=== PATIENT | male | born 1965 | race African-American/Black ===

== ENCOUNTER → 2017-09-12 | Outpatient (CLI) | payer OTHER | END | disposition home or self-care (01) | LOC: LABWHC1 14:30 | PROVIDERS: ATTEND Family Medicine | DX: Z13.88 Encounter for screening for disorder due to exposure to contaminants (principal) | CPT/HCPCS: 36415; 83655 ==

== ENCOUNTER → 2018-11-30 | Outpatient (CLI) | payer OTHER ==
--- NOTE | 2018-11-30 23:41 | MR ---
EXAMINATION TYPE: MR femur/thigh RT wo con DATE OF EXAM: 11/30/2018 COMPARISON: None HISTORY: Thigh pain/tightness, swelling in rt knee Standard multiplanar, multisequence MRI departmental protocol Multiplanar, multisequence images of the right thigh were acquired. FINDINGS: There is a knee joint effusion. The visualized femur appears intact without evidence of foc al bone destruction. There is 18 x 8 mm exostosis type lesion on the posterior aspect of the distal s haft of the femur. There is no evidence of a soft tissue mass. There is no evidence of deep venous th rombosis in the thigh. There is no evidence of intramuscular mass. Muscle bundles appear intact. Ther e is minimal subcutaneous edema around the knee. IMPRESSION: There is evidence of a benign-appearing exostosis of the posterior distal shaft of the femur. Otherwi se negative MR scan of the thigh. Knee joint effusion is noted.
--- NOTE | 2018-11-30 23:46 | MR ---
EXAMINATION TYPE: MR knee RT wo con DATE OF EXAM: 11/30/2018 COMPARISON: None HISTORY: Thigh pain/tightness, swelling in rt knee TECHNIQUE: Multiplanar, multisequence imaging of the right knee is performed without IV contrast. FINDINGS: There is knee joint effusion. There is subcutaneous edema around the knee. The anterior and posterior cruciate ligaments are intact. The medial and lateral menisci appear intact. Collateral ligaments ar e intact. I see no bony destructive process. There are small degenerative cysts in the posterior aspe ct of the medial tibial condyle. There is a large cartilaginous defect involving articular surface of the medial femoral condyle. This measures 6 x 17 mm. IMPRESSION: Knee joint effusion. No evidence of ligamentous or meniscal tear. Small degenerative cysts in the med ial tibial condyle. Moderate subcutaneous edema around the knee joint. No fracture seen. Large cartilaginous defect of the medial femoral condyle.
== END | disposition home or self-care (01) ==
LOC: RADMRIMAIN 20:30
PROVIDERS: ATTEND Orthopaedic Surgery
DX: M25.461 Effusion, right knee (principal); M85.68 Other cyst of bone, other site

== ENCOUNTER 2021-05-30 11:41 | Emergency (ER) | payer OTHER ==
--- NOTE | 2021-05-30 13:32 | XR ---
EXAMINATION TYPE: XR foot complete LT DATE OF EXAM: 05/30/2021 COMPARISON: NONE HISTORY: Pain TECHNIQUE: Three views are submitted. FINDINGS: The osseous structures are intact. There is no acute fracture or dislocation. Joint spaces are p reserved. Calcaneal spurs noted. IMPRESSION: 1. No acute fracture or dislocation. If symptoms persist, follow-up exam in 7 to 10 days could be ob tained.
--- NOTE | 2021-05-30 13:33 | XR ---
EXAMINATION TYPE: XR Hip Complete LT DATE OF EXAM: 05/30/2021 COMPARISON: NONE HISTORY: Pain TECHNIQUE: 2 views submitted FINDINGS: There is no evidence of erosive change or acute fracture. Hypertrophic change of the acetabulum. IMPRESSION: 1. No evidence of acute fracture or dislocation. Correlate for femoral acetabular impingement.
--- NOTE | 2021-05-30 13:33 | ED ---
General Adult HPI - General Chief complaint: Trauma Stated complaint: [facility] - lt side injury Time Seen by Provider: 05/30/21 12:42 Source: patient Mode of arrival: ambulatory Limitations: no limitations - History of Present Illness Initial comments: Dictation was produced using [employer] dictation software. please excuse any grammatical, word or spelling errors. Chief Complaint: 55-year-old male with no significant past medical history presents with left shoulder pain, left hip pain and left foot pain History of Present Illness: Patient is a 55-year-old male who presents to the emergency department for left shoulder, left hip and left foot pain. Yesterday he was at work when a high low reversed into him. He states that the lateral portion of his foot was ran over by a tire causing his sock to read. He has some bruising on the lateral foot. She states that the hilar was going at low speeds. States that he has left shoulder and left hip pain. He states that he came today because he was not able to follow-up yesterday. The ROS documented in this emergency department record has been reviewed and confirmed by me. Those systems with pertinent positive or negative responses have been documented in the HPI. All other systems are other negative and/or noncontributory. PHYSICAL EXAM: General Impression: Alert and oriented x3, not in acute distress HEENT: Normocephalic atraumatic, extra-ocular movements intact, pupils equal and reactive to light bilaterally, mucous membranes moist. Cardiovascular: Heart regular rate and rhythm Chest: Able to complete full sentences, no retractions, no tachypnea Abdomen: abdomen soft, non-tender, non-distended, no organomegaly Musculoskeletal: Pulses present and equal in all extremities, no peripheral edema, no tenderness over the left acromial tip, limited active range of motion abduction, intact passive range of motion, stable left hip, left hip manipulation is nonantalgic Left foot, mild bruising around the lateral foot Motor: no focal deficits noted Neurological: CN II-XII grossly intact, no focal motor or sensory deficits noted Skin: Intact with no visualized rashes Psych: Normal affect and mood ED course: 55-year-old male presents with left foot crush injury and contusion of his left shoulder and left hip. Vital signs upon arrival are within acceptable limits. X-ray of the shoulder shows no acute fractures. There is a spur off the inferior surface of the left apical. Radiology recommends MRI. Left hip x-ray shows no fracture dislocation but there does appear to be femoral acetabular impingement. Foot x-ray shows no acute fracture. Patient reevaluated at the bedside. He states he feels okay. Does not have pain in his mid foot or with his based fifth metatarsal. Chin states he has known history of a spur on his left clavicle from previous injury. Patient requesting 800 mg Motrin for when necessary pain to take home. - Related Data Previous Rx's Medication Instructions Recorded Ibuprofen [Motrin] 800 mg PO Q8H PRN #24 tab 05/30/21 Allergies Allergy/AdvReac Type Severity Reaction Status Date / Time No Known Allergies Allergy Verified 05/30/21 12:24 Review of Systems ROS Statement: Those systems with pertinent positive or pertinent negative responses have been documented in the HPI. ROS Other: All systems not noted in ROS Statement are negative. Past Medical History Past Medical History: No Reported History History of Any Multi-Drug Resistant Organisms: None Reported Past Surgical History: No Surgical Hx Reported Past Psychological History: No Psychological Hx Reported Smoking Status: Never smoker Past Alcohol Use History: None Reported Past Drug Use History: None Reported General Exam Limitations: no limitations Course Vital Signs 05/30/21 12:25 Temperature 98 F Pulse Rate 88 Respiratory 16 Rate Blood Pressure 139/86 O2 Sat by Pulse 99 Oximetry Disposition Clinical Impression: Contusion, hip, Crush injury of foot, Shoulder contusion Disposition: HOME SELF-CARE Condition: Good Instructions (If sedation given, give patient instructions): Contusion in Adults (ED) Prescriptions: Ibuprofen [Motrin] 800 mg PO Q8H PRN #24 tab PRN Reason: Pain Is patient prescribed a controlled substance at d/c from ED?: No Referrals: Robert Martell MD [Primary Care Provider] - 1-2 days
--- NOTE | 2021-05-30 13:34 | XR ---
EXAMINATION TYPE: XR shoulder complete LT DATE OF EXAM: 05/30/2021 COMPARISON: NONE HISTORY: Pain TECHNIQUE: Three views are submitted. FINDINGS: The osseous structures are intact. There is no acute fracture or dislocation. Mild hypertrophic campuzano ge of the AC joint. Spur extending off the mid left clavicle. No acute fracture or dislocation. AC liliana int distance within normal limits IMPRESSION: 1. No acute fracture. 2. Spur extending off the inferior surface of the mid left clavicle could represent a small exostosis . Recommend MRI of the shoulder.
[2021-05-30] MEDS ORDERED: IBUPROFEN 800 MG TAB PO STA (13:37)
[2021-05-30 14:29] VITALS: BP 132/82; PULSE 80; RESP 18; TEMP 98.4
== END 2021-05-30 14:28 | disposition home or self-care (01) ==
LOC: EC 11:41
DX: S40.012A Contusion of left shoulder, initial encounter (principal); S70.02XA Contusion of left hip, initial encounter; S97.82XA Crushing injury of left foot, initial encounter; V09.9XXA Pedestrian injured in unspecified transport accident, initial encounter; Y99.0 Civilian activity done for income or pay
CPT/HCPCS: 73502; 99283

== ENCOUNTER → 2021-06-07 | Outpatient (CLI) | payer OTHER ==
--- NOTE | 2021-06-08 02:49 | MR ---
EXAMINATION TYPE: MR hip LT wo con DATE OF EXAM: 06/07/2021 COMPARISON: None HISTORY: Left hip pain since 05-28-21 due to being hit by forklift at work Multiplanar multiecho imaging of the pelvis and left hip without contrast. Proximal femurs appear intact. There is fairly normal signal pattern of the femoral heads. Acetabula appear intact. Bladder distends smoothly. There is no free fluid in the pelvis. Sacroiliac joints tiffanie ear normal. Pelvic ring appears intact. There is no evidence of a soft tissue mass. No evidence of an y significant hip joint effusion. No evidence of a pelvic mass. IMPRESSION: Negative MR scan of the left hip. No fracture. No sign of soft tissue injury.
--- NOTE | 2021-06-08 02:57 | MR ---
EXAMINATION TYPE: MR shoulder LT wo con DATE OF EXAM: 06/07/2021 COMPARISON: None HISTORY: Left shoulder pain since 05-28-21 due to being hit by forklift at work Multiplanar multiecho imaging of the left shoulder without contrast. The glenoid marlon appear intact. Subscapularis tendon is intact. Biceps tendon is intact. AC joint is intact. There is no subacromial impingement. The supraspinatus tendon is intact. No retraction. No e vidence of any significant shoulder joint effusion. No evidence of soft tissue mass. No evidence of a fracture. IMPRESSION: Negative MR scan of the left shoulder. No evidence of rotator cuff tear. No fracture.
== END | disposition home or self-care (01) ==
LOC: RADMRIMAIN 15:39
PROVIDERS: ATTEND Emergency Medicine
DX: S40.012A Contusion of left shoulder, initial encounter (principal); S43.402A Unspecified sprain of left shoulder joint, initial encounter; S73.102A Unspecified sprain of left hip, initial encounter; S70.02XA Contusion of left hip, initial encounter; S97.82XA Crushing injury of left foot, initial encounter; R20.9 Unspecified disturbances of skin sensation; X58.XXXA Exposure to other specified factors, initial encounter

== ENCOUNTER → 2021-06-11 | Outpatient (CLI) | payer OTHER ==
--- NOTE | 2021-06-11 11:09 | CT ---
EXAMINATION TYPE: CT foot LT wo con DATE OF EXAM: 06/11/2021 COMPARISON: X-ray dated 05/30/2021 HISTORY: Left 5th metatarsal pain after injury. CT DLP: 342.1 mGycm Automated exposure control for dose reduction was used. TECHNIQUE: Multiplanar CT scan of the left foot without IV contrast administration. 3-D images were r econstructed on an independent workstation and reviewed. FINDINGS: No definite acute fracture line identified. Tiny osteophytosis of the ankle joint denoting degenerati ve changes. Inferior calcaneal spur with posterior calcaneal enthesophyte at the insertion of the Ach illes tendon. No sizable ankle joint effusion. Preserved ankle mortise with a smooth talar dome. Mild degenerative changes of the distal intertarsal articulations. Osteophytosis of the first metatarsophalangeal joint. No other significant bony or ar ticular abnormality identified. IMPRESSION: No definite acute fracture line identified. Incidental findings as described above.
== END | disposition home or self-care (01) ==
LOC: RADCTMAIN 10:34
PROVIDERS: ATTEND Emergency Medicine
DX: S97.82XD Crushing injury of left foot, subsequent encounter (principal); X58.XXXD Exposure to other specified factors, subsequent encounter

== ENCOUNTER → 2022-02-28 | Outpatient (CLI) | payer OTHER ==
--- NOTE | 2022-02-28 15:48 | XR ---
EXAMINATION TYPE: XR chest 2V DATE OF EXAM: 02/28/2022 COMPARISON: NONE TECHNIQUE: PA and lateral views submitted. HISTORY: Wheezing FINDINGS: The lungs are clear and there is no pneumothorax, pleural effusion, or focal pneumonia. Heart size normal with no overt failure. Arthropathy of the AC joints. Hypertrophic changes of the spine. IMPRESSION: 1. No acute process.
== END | disposition home or self-care (01) ==
LOC: RADXRMAIN 15:34
PROVIDERS: ATTEND Otolaryngology
DX: R06.2 Wheezing (principal)
CPT/HCPCS: 71046

== ENCOUNTER → 2022-07-17 | Outpatient (CLI) | payer OTHER ==
--- NOTE | 2022-07-17 10:20 | XR ---
EXAMINATION TYPE: XR elbow complete LT DATE OF EXAM: 07/17/2022 CLINICAL HISTORY: Contusion injury with pain TECHNIQUE: Frontal, lateral and oblique images of the left elbow are obtained. COMPARISON: Prior left elbow x-ray December 09, 2019 FINDINGS: There is no acute fracture/dislocation evident in the left elbow. No abnormal fat pad sig ns are seen. Persistent bony projection or enthesopathy from the olecranon at the distal triceps tend on insertion. There is tiny spur from the anterior lip of the olecranon seen on lateral projection. T he overlying soft tissue appears unremarkable. IMPRESSION: There is no acute fracture or dislocation in the left elbow.
== END | disposition home or self-care (01) ==
LOC: RADXRMAIN 10:00
PROVIDERS: ATTEND Emergency Medicine
DX: S50.02XA Contusion of left elbow, initial encounter (principal)

== ENCOUNTER → 2023-04-02 | Outpatient (CLI) | payer OTHER ==
--- NOTE | 2023-04-02 08:58 | XR ---
EXAMINATION TYPE: XR elbow complete LT DATE OF EXAM: 04/02/2023 8:35 AM CLINICAL INDICATION:Male, 57 years old with history of S50.02XA CONTUSION OF LEFT ELBOW, INITIAL ENCO UNTE; [facility] COMPARISON: None TECHNIQUE: XR elbow complete LT; elbow was examined in AP, lateral, and oblique projections. FINDINGS: No evidence of any acute osseous pathology, joint dislocation, or soft tissue swelling is n oted. No evidence of joint effusion is present. Enthesophyte formation of the olecranon process of t he ulna. Mild osteophyte summation of the coronoid process of the ulna. IMPRESSION: 1. No evidence of acute fracture. 2. Mild degeneration changes of the elbow.
== END | disposition home or self-care (01) ==
LOC: RADXRMAIN 08:23
PROVIDERS: ATTEND Emergency Medicine
DX: S50.02XA Contusion of left elbow, initial encounter (principal); M19.022 Primary osteoarthritis, left elbow

== ENCOUNTER → 2023-04-11 | Outpatient (CLI) | payer OTHER ==
--- NOTE | 2023-04-11 09:50 | XR ---
EXAMINATION TYPE: XR elbow complete LT DATE OF EXAM: 04/11/2023 9:23 AM CLINICAL INDICATION:Male, 57 years old with history of S50.02XD Contusion elbow left; [facility] COMPARISON: None TECHNIQUE: XR elbow complete LT; elbow was examined in AP, lateral, and oblique projections. FINDINGS: No evidence of any acute osseous pathology, joint dislocation, or soft tissue swelling is n oted. No evidence of joint effusion is present. Osteophyte formation of the olecranon at the triceps insertion. IMPRESSION: No evidence of acute fracture.
== END | disposition home or self-care (01) ==
LOC: RADXRMAIN 09:09
PROVIDERS: ATTEND Emergency Medicine
DX: S50.02XD Contusion of left elbow, subsequent encounter (principal)

== ENCOUNTER → 2024-03-29 | Outpatient (CLI) | payer OTHER ==
--- NOTE | 2024-03-29 08:02 | XR ---
EXAMINATION TYPE: XR chest 2V DATE OF EXAM: 03/29/2024 7:57 AM COMPARISON: Chest radiographs from 02/28/2022 CLINICAL INDICATION: Male, 58 years old with history of R06.2 WHEEZING R05.9 COUGH; H TECHNIQUE: XR chest 2V Frontal and lateral views of the chest. FINDINGS: Lungs/Pleura: There is no evidence of pleural effusion, focal consolidation, or pneumothorax. Pulmonary vascularity: Unremarkable. Heart/mediastinum: Cardiomediastinal silhouette is unremarkable. Musculoskeletal: No acute osseous pathology. IMPRESSION: No acute cardiopulmonary disease/process. [facility], , 03/29/2024 8:00 AM
[2024-03-29 10:53] LABS: Basophils # (A) 0.09 X 10*3/uL (0.00-0.10); Basophils % (A) 1.4 %; Eosinophils # (A) 0.35 X 10*3/uL (0.04-0.35); Eosinophils % (A) 5.6 %; Lymphocytes # (A) 2.37 X 10*3/uL (0.90-5.00); Lymphocytes % (A) 37.7 %; MCH 23.6 pg (27.0-32.0); MCHC 30.6 g/dL (32.0-37.0); Mean Platelet Volume 10.1 FL (9.5-12.2); Monocytes # (A) 0.61 X 10*3/uL (0.20-1.00); Monocytes % (A) 9.7 %; NRBC Per 100 WBC 0 X 10*3/uL (0.00-0.01); Neutrophils # (A) 2.81 X 10*3/uL (1.80-7.70); Neutrophils % (A) 44.8 %; Platelet Count 318 X 10*3/uL (140-440); RBC 6.36 X 10*6/uL (4.40-5.60); RDW 15.9 % (11.5-14.5); WBC 6.28 X 10*3/uL (4.50-10.00)
[2024-03-29 18:10] LABS: ALT 40 U/L (10-49); AST 26 U/L (14-35); Albumin/Globulin Ratio 1.38 Ratio (1.60-3.17); Alkaline Phosphatase 67 U/L (41-126); Blood Urea Nitrogen 12.6 mg/dL (9.0-27.0); Calcium 9.4 mg/dL (8.7-10.3); Carbon Dioxide 26.8 mmol/L (21.6-31.8); Chloride 105 mmol/L (96-109); Globulin 2.9 g/dL (1.6-3.3); Glucose 97 mg/dL (70-110); LDL Cholesterol,Calculated 220.8 mg/dL (0.0-131.0); Potassium 4.6 mmol/L (3.5-5.5); Prostate Specific Antigen 7.65 ng/mL (0.000-4.500); Sodium 141 mmol/L (135-145); Total Bilirubin 0.3 mg/dL (0.3-1.2); Total Protein 6.9 g/dL (6.2-8.2)
== END ==
LOC: RADXRMAIN 07:43
PROVIDERS: ATTEND Family Medicine
DX: Z12.5 Encounter for screening for malignant neoplasm of prostate (principal); R06.2 Wheezing; R05.9 Cough, unspecified; J30.9 Allergic rhinitis, unspecified; E78.2 Mixed hyperlipidemia; R71.8 Other abnormality of red blood cells
CPT/HCPCS: 36415; 71046; 80053; 80061; 84153; 84443; 85025